=== PATIENT | female | born 1960 | race Hispanic/Latino ===

== ENCOUNTER 2022-04-28 21:11 | Emergency (ER) | payer OTHER ==
[~2022-04-28] VITALS: Ht 162.6 cm; Wt 72.6 kg
[2022-04-28 21:46] VITALS: BP 122/86
== END 2022-04-28 23:14 | disposition left against medical advice (07) ==
LOC: EDH 21:11
DX: R51.9 Headache, unspecified (principal); Z53.21 Procedure and treatment not carried out due to patient leaving prior to being seen by health care provider